=== PATIENT | male | born 1970 | race Caucasian/White ===

== ENCOUNTER 2025-05-22 01:56 | Inpatient (IN) | payer MEDICARE, OTHER, SELFPAY ==
[2025-05-21 19:56] VITALS: BP 120/93
[2025-05-21 20:27] LABS: Albumin 5.3 g/dl (3.5-5.0); Alkaline Phosphatase 71 U/L (38-126); Blood Urea Nitrogen 21 mg/dl (9-20); Calcium 10.8 mg/dl (8.4-10.2); Carbon Dioxide 20 mmol/L (22-30); Chloride 101 mmol/L (98-107); Glucose 174 mg/dl (70-99); Lipase 114 U/L (23-300); Potassium 3.5 mmol/L (3.5-5.1); Sodium 140 mmol/L (135-145); Total Protein 8.4 g/dl (6.3-8.2); eGFR > 60.00
[2025-05-21 20:37] LABS: AST (SGOT) 36 U/L (17-59)
[2025-05-21 20:41] LABS: Hematocrit 47.4 % (39.0-52.0); Hemoglobin 17.7 g/dL (13.0-18.0); Mean Corp Hgb Conc. 37.3 g/dL (33.0-37.0); Mean Corpuscular Volume 81.3 fL (80.0-94.0); Nucleated Red Blood Cells % 0 % (-); Platelet Count 348 10^3/uL (130-400); Red Cell Dist. Width 12.2 % (11.5-14.5)
[2025-05-21] MEDS: ATIVAN 0.5 MG IV (21:31)
[2025-05-21] MEDS: NSS 1000 IV (21:31)
[2025-05-21 21:37] LABS: ALT (SGPT) < 30 U/L (0-50)
--- NOTE | 2025-05-21 21:44 | ED.GENMED ---
History of Present Illness
General
Chief Complaint: Abdominal Symptoms
Source: patient and family (Mother at bedside)
Exam Limitations: none
Time Seen by Provider: 05/21/25 20:55
Nursing documentation reviewed up to this point in time: agreed with
History of Present Illness
History of Present Illness:
54 yo male w h/o Lyme's, on disability for anxiety, presents with upper abdominal pain and diarrhea that started early this morning around 6 AM. The only thing he ate that didn't taste right was a pastry early this a.m.Arrives via EMS, given Zofran
IV, feels did not significantly help. He notes ongoing nausea and mentions last emesis was several hours ago. He has had diarrhea since this a.m. and throughout the day.
The patient reports taking a significant amount of Gaviscon, described as finishing off a couple of partially filled bottles, though he is uncertain of the exact amount. He lives with his parents. ETOH only occasionally. He does not currently work
and denies any recent antibiotic use. The patient does not recall taking any regular medications for anxiety but mentioned he used to in the past. There is no history of past surgeries.
Past History
Past History
ED Past Medical History: HTN, Other (Sciatica) and Other (Lyme disease)
ED Past Surgical History: None
Social History
Tobacco: Vaping
Alcohol: None
Drug: None
Living: with family
Employment: Disabled
Review of Systems
Review of Systems
Allergies reviewed?: Yes
All Other Systems: ROS reviewed and negative except as documented in HPI and ROS
ABD/GI: Reports abdominal pain, nausea, vomiting and diarrhea
: Denies dysuria
Psychiatric: Reports anxiety
Phy Exam
Physical Exam
Physical Exam:
GENERAL: No acute distress. A&Ox3.
CONSTITUTIONAL: Afebrile.
EYES: clear, conjunctivae normal
ENMT: moist mucus membranes, Pharynx nl
RESPIRATORY: Regular respirations, nonlabored, lungs clear.
CARDIOVASCULAR: Regular rate and rhythm, no murmurs, no rubs.
GI: Soft, tender across upper abdomen , normal BS
MUSCULOSKELETAL: Moves with ease. Well perfused.
SKIN: Warm, dry, pink
PSYCH: Anxious mood and affect. Well kept, interactive and appropriate
NEUROLOGIC: Awake, alert and oriented. No focal neurological deficits
Sepsis
Sepsis Screening
Sepsis Assessment: Sepsis Ruled Out
Sepsis Screen
Sepsis Screen: Sepsis Ruled Out
Date: 05/22/25
Time: 00:57
Course
Orders/Labs/Results
Orders:
Orders
05/21/25 19:59
IV Insert/Care/Rem.- Treatment PRN
05/21/25 20:04
Complete Blood Count/With Diff Urgent
Comprehensive Metabolic Panel Urgent
Lipase Urgent
05/21/25 21:06
Lorazepam [Ativan] 0.5 mg IV NOW STA
05/21/25 21:07
0.9% Sodium Chloride 1000 ml [Nss] 1,000 ml IV BOLUS
05/21/25 22:06
CT Abd/Pel (IV only)-DH only Urgent
Comment:
Reason For Exam: pain across upper abdomen, n/v/d
05/21/25 23:16
Acetaminophen [Tylenol] 1,000 mg PO NOW STA
HYDROmorphone [Dilaudid] 1 mg IV NOW STA
05/21/25 23:23
Ketorolac [Toradol] 15 mg IV NOW STA
05/21/25 23:57
Ondansetron Injectable [Zofran] 4 mg IV NOW STA
05/22/25 00:16
HYDROmorphone [Dilaudid] 0.5 mg IV NOW STA
Abnormal Lab Results
05/21/25
20:04
WBC 24.8 H 10^3/uL
(4.8-10.8)
MCHC 37.3 H g/dL
(33.0-37.0)
Abs Immat Gran (auto) 0.1 H 10^3/uL
(0-0.05)
Absolute Neuts (auto) 22.9 H 10^3/uL
(1.4-6.5)
Absolute Lymphs (auto) 1.1 L 10^3/uL
(1.2-3.4)
Absolute Monos (auto) 0.8 H 10^3/uL
(0.1-0.6)
Neutrophils % 92.1 H %
(42.2-75.2)
Lymphocytes % 4.2 L %
(20.5-51.1)
Carbon Dioxide 20 L mmol/L
(22-30)
BUN 21 H mg/dl
(9-20)
Glucose 174 H mg/dl
(70-99)
Calcium 10.8 H mg/dl
(8.4-10.2)
Total Bilirubin 2.8 H mg/dl
(0.2-1.3)
Total Protein 8.4 H g/dl
(6.3-8.2)
Albumin 5.3 H g/dl
(3.5-5.0)
05/21/25 20:04
05/21/25 20:04
Vital Signs
Initial and Last Documented VS:
Initial Vital Signs
Temp Pulse Resp BP Pulse Ox
99.9 F 123 24 120/93 100
05/21/25 19:56 05/21/25 19:56 05/21/25 19:56 05/21/25 19:56 05/21/25 19:56
Last Documented Vital Signs
Temp Pulse Resp BP Pulse Ox
100.6 F H 123 24 140/96 100
05/22/25 00:17 05/21/25 19:56 05/21/25 19:56 05/22/25 00:00 05/22/25 00:45
MDM/Problems Addressed
Differential Diagnosis Includes:
The Differential Diagnosis includes, in no particular order and is not limited to:
1. Gastroenteritis
2. Food poisoning
3. Peptic ulcer disease
4. Gastritis
5. Functional dyspepsia
6. Gallbladder disease
7. Pancreatitis
8. Anxiety-induced hyperventilation
9. Irritable bowel syndrome
10. Viral gastroenteritis
MDM/Problems Addressed:
54 yo male w h/o Lyme's, on disability for anxiety, presents with upper abdominal pain and diarrhea that started early this morning around 6 AM. The only thing he ate that didn't taste right was a pastry early this a.m.Arrives via EMS, given Zofran
IV, feels did not significantly help. He notes ongoing nausea and mentions last emesis was several hours ago. He has had diarrhea since this a.m. and throughout the day.
The patient reports taking a significant amount of Gaviscon, described as finishing off a couple of partially filled bottles, though he is uncertain of the exact amount. He lives with his parents. ETOH only occasionally. He does not currently work
and denies any recent antibiotic use. The patient does not recall taking any regular medications for anxiety but mentioned he used to in the past. There is no history of past surgeries.
Afebrile, extremely anxious, hyperpneic
Plan:
- Administer intravenous fluids.
- Collect a stool sample if the patient experiences another episode of diarrhea.
- Consider providing calming medication.
-Antiemetic medication
CBC: WBC 24.8 otherwise unremarkable
CMP:
10:00 PM:
In to reevaluate patient. Slightly less anxious, abdomen firm, tender mid upper abdomen only the rest of the abdomen is nontender.
Will obtain CT
11:15 p.m.
Pt writhing in pain
Temp 100.5
[address] report reviewed: IMPRESSION:
Image quality is mildly degraded by motion artifact.
There are numerous mildly prominent loops of small bowel with areas of wall thickening and stranding as well as air-fluid levels in the colon which is suggestive of coloenteritis/diarrheal illness. There is small volume free fluid in the upper
pelvis which may be reactive. No free air.
12:00 a.m.
Pt still vomiting, abdominal pain,
Plan: Admit: gastroenteritis/colitis,
Hospitalist notified of admission.
*Pulse Oximetry
SaO2: 100
Oxygen Mode of Delivery: Room air
Patient hypoxic: no
*Critical Care Note
Total Time (30-74mins, 75-104mins- exclusive of procedures): Not Applicable
ED Attending Note
-
Portions of this chart may have been created with voice recognition software.� Occasional wrong word or��sound alike� substitutions may have occurred due to the inherent limitations of voice recognition software.
Discharge Plan
Departure
Patient Disposition: Admit
Date of Disposition: 05/22/25
Time of Disposition: 00:19
Admit to: Med/Surg
Presentation/result/management discussed w/ accepting MD/DO: Hospitalist
Patient with high blood pressure during this ER visit?: No
Condition: Fair
Discharge Problem:
Gastroenteritis, Abdominal pain
Prescriptions:
New
ondansetron 4 mg tablet,disintegrating
4 mg PO Q8H PRN (Reason: nausea and vomiting) 4 Days Qty: 12 0RF
Referrals:
NONE,* [Family Provider, Internal Medicine]
Interventions
Interventions:
*Risk Screen - Suicide Last Done: 05/21/25 19:56
*General Assessment Last Done: 05/21/25 21:55
*Neglect/Abuse Screening Last Done: 05/21/25 19:56
*ED- Fall Risk Assessment Last Done: 05/21/25 21:55
*ED COVID-19 Vaccine History Last Done: 05/21/25 21:55
QY-Etynez-Scyfkezpti Assessment Last Done: 05/21/25 21:55
Discharge Date and Time
Print Language: LITHUANIAN
[2025-05-21] MEDS: TYLENOL 1000 MG PO (23:43)
[2025-05-21] MEDS: TORADOL 15 MG IV (23:44)
[2025-05-21 23:54] VITALS: BP 158/112
[2025-05-22] VITALS (8 sets, daily range): BP systolic 136–172; BP diastolic 83–103; BMI 28.0
[2025-05-22] MEDS: ZOFRAN 4 MG IV ×3 (00:10→12:57)
[2025-05-22] MEDS: DILAUDID 0.5 MG IV (00:22)
--- NOTE | 2025-05-22 01:24 | HPS.HSE ---
Family Physician
-
Family Physician: * NONE
Chief Complaint
-
N/V/D
History of Present Illness
Patient is a 54y M with PMH significant for debilitating anxiety who presents to ED complaining of N/V/D. Patient states that his symptoms started this AM and have been persistent throughout the day. He notes that he attended a birthday alliance party
yesterday, but he is not aware of other attendees having similar symptoms. he complains of intermittent crampy abdominal pain, N/V and watery / non-bloody diarrhea. Patient took Gaviscon at home (apparently a large quantity - unclear how much
precisely) without relief of his symptoms. He presented to the ED for further evaluation and treatment.
At the time of my examination, patient is in moderate distress due to abdominal discomfort, nausea and anxiety.
Medical History
Past Medical History
Past Medical History: Reports Other
Additional Past Medical History:
Anxiety
Past Surgical History: Reports None
Social History
Tobacco: Non-smoker
Alcohol: None
Drug: None
Living: With Family (On disability due to anxiety. Lives with his parents.)
Family History
Family History: Not pertinent
Allergies / Home Medications
Allergies reflects when Allergies were last updated in [facility].
Home Medications with original date entered in [facility]
Allergy/Medication List:
Allergies
Allergy/AdvReac Type Severity Reaction Status Date / Time
No Known Allergies Allergy Unverified 05/21/25 19:56
Home Medications
ondansetron 4 mg disintegrating tablet 4 mg PO Q8H PRN nausea and vomiting 4 days #12 tabs 05/22/25
Review of Systems
-
History Source: Patient
A 12 point ROS was completed and negative except as noted: Yes
Constitutional: Reports Fatigue; Denies Fever or Chills
EENT: Denies Sore Throat
Respiratory: Denies Cough or Trouble Breathing
Cardiac: Denies Chest Pain or Palpitations
Abdomen/GI: Reports Abdominal Pain, Nausea, Vomiting and Diarrhea; Denies Bloody Stools or Black Stools
: Denies Dysuria or Frequency
Musculoskeletal: Denies Joint Pain or Edema
Neurological: Denies Dizzy or Headache
Psych: Reports Anxiety; Denies Depression
Physical Exam
Vital Signs
Vital Signs
Temp Pulse Resp BP Pulse Ox
100.6 F H 123 24 140/96 100
05/22/25 00:17 05/21/25 19:56 05/21/25 19:56 05/22/25 00:00 05/22/25 00:45
Physical Exam
General: Other (54y M in moderate distress due to pain / nausea.)
HEENT: Other (Dry MM. Neck supple.)
Respiratory: Clear; No Wheezes, Rales or Rhonchi
Cardiac: S1/S2 and Tachycardia; No Murmur
GI: Soft, Non Distended, Normal Bowel Sounds and Other (Mildly, diffusely tender.)
Musculoskeletal: No Clubbing, No Cyanosis and No Edema
Neuro: AO x 3
Psych: Other (Anxious, atypical / childlike affect.)
Laboratory Results
-
05/21/25 20:04
05/21/25 20:04
Laboratory Results
Total Bilirubin 2.8 mg/dl (0.2-1.3) H 05/21/25 20:04
AST 36 U/L (17-59) 05/21/25 20:04
ALT < 30 U/L (0-50) 05/21/25 20:04
Alkaline Phosphatase 71 U/L (38-126) 05/21/25 20:04
Lipase 114 U/L (23-300) 05/21/25 20:04
Impression/Plan
-
A/P: Patient is a 54y M with PMH significant for anxiety who presents to ED complaining of N/V/D.
Coloenteritis
Sepsis secondary to the above
Anion Gap Metabolic Acidosis
- Admit for further evaluation and treatment.
- Patient presents with fever, tachycardia, tachypnea, leukocytosis and symptoms / CT findings suggestive of enteritis.
- Check stool studies when able. Consider antibiotics if positive cultures.
- Aggressive IVF replacement.
- Supportive care with antiemetics, etc.
- Follow fever curve. Follow for changes in symptoms.
- Check lactate now and follow if elevated.
- Follow for clinical improvement and improvement in labs / lytes.
Generalized Anxiety
- Patient on disability due to anxiety diagnosis.
- Not currently on any maintenance medications?
- PRN Ativan for now.
DVT Prophylaxis: SCDs
Code Status: Full
[2025-05-22] MEDS: LR 1000 IV ×4 (02:43→23:09)
[2025-05-22] MEDS: ATIVAN 0.5 MG PO ×2 (02:58→08:04)
[2025-05-22 03:02] LABS: Hematocrit 42.3 % (39.0-52.0); Hemoglobin 16.1 g/dL (13.0-18.0); Mean Corp Hgb Conc. 38.1 g/dL (33.0-37.0); Mean Corpuscular Volume 80.7 fL (80.0-94.0); Platelet Count 284 10^3/uL (130-400); Red Cell Dist. Width 12.4 % (11.5-14.5)
[2025-05-22 03:23] LABS: ALT (SGPT) 16 U/L (0-50); AST (SGOT) 27 U/L (17-59); Albumin 4.6 g/dl (3.5-5.0); Alkaline Phosphatase 66 U/L (38-126); Blood Urea Nitrogen 21 mg/dl (9-20); Calcium 9.6 mg/dl (8.4-10.2); Carbon Dioxide 19 mmol/L (22-30); Chloride 109 mmol/L (98-107); Estimated Creatinine Clearance 53 ml/min; Glucose 157 mg/dl (70-99); Magnesium 2.3 mg/dl (1.6-2.3); Potassium 3.6 mmol/L (3.5-5.1); Sodium 140 mmol/L (135-145); Total Protein 7.4 g/dl (6.3-8.2); eGFR > 60.00
[2025-05-22] MEDS: COMPAZINE 5 MG IV (04:06)
[2025-05-22] MEDS: TYLENOL 650 MG PO (05:23)
[2025-05-22] MEDS: PROTONIX 40 MG PO (07:29)
--- NOTE | 2025-05-22 09:54 | W.PN.HOSP.TC ---
Addendum entered and electronically signed by Juanito Olivier MD 05/22/25 12:41:
I was able to talk to his mother and her phone number is actually [phone]. I explained current plan of care. Also confirm the patient is not taking any medications at home so no need for Ativan as it was ordered upon admission.
Original Note:
Today's Communication/Plan
-
GI eval
Assessment / Plan
Assessment / Plan
Physical exam:
General: Acutely ill
HEENT: Normocephalic, Atraumatic and Moist Mucous Membranes
Respiratory: Clear to Auscultation; Negative Wheezes, Rales or Rhonchi
Cardiac: Regular Rhythm and S1/S2
GI: Soft, tender and Nondistended
Musculoskeletal: No Clubbing, No Cyanosis and No Edema
Neuro: Awake, Alert and Oriented
Psych: Calm
A/P:
Coloenteritis
Sepsis secondary to the above
Anion Gap Metabolic Acidosis
- Admit for further evaluation and treatment.
- Patient presents with fever, tachycardia, tachypnea, leukocytosis and symptoms / CT findings suggestive of enteritis.
- Check stool studies when able. Consider antibiotics if positive cultures.
- Aggressive IVF replacement.
- Supportive care with antiemetics, etc.
- Follow fever curve. Follow for changes in symptoms.
- Check lactate now and follow if elevated.
- Follow for clinical improvement and improvement in labs / lytes.
- GI consult today
Generalized Anxiety
- Patient on disability due to anxiety diagnosis.
- Not currently on any maintenance medications?
- Discontinue as needed Ativan for now since there is no clear evidence that he has been on it prior to admission. I will try to reach out to family but unsuccessful and will try later down the road to clarify.
DVT Prophylaxis: SCDs
Code Status: Full
Anticipated Discharge: 24 - 48 hours
Subjective/Interval History
-
Date of Service: May 22, 2025
Patient does complain of abdominal pain with nausea. Does not make much of eye contact and does take significant amount of time to answer questions.
Objective Data
-
Labs:
Laboratory Results
05/22/25
02:50
WBC 22.4 H
Hgb 16.1
Hct 42.3
Plt Count 284
Sodium 140
Potassium 3.6
Chloride 109 H
Carbon Dioxide 19 L
BUN 21 H
Creatinine 1.2
Glucose 157 H
Calcium 9.6
Total Bilirubin 2.4 H
AST 27
ALT 16
Alkaline Phosphatase 66
Vital Signs:
Vital Signs
Temp Pulse Resp BP Pulse Ox
99.5 F 104 18 152/92 95
05/22/25 08:14 05/22/25 08:14 05/22/25 08:14 05/22/25 08:14 05/22/25 08:14
I&O
05/21/25 05/22/25 05/23/25
06:59 06:59 06:59
Intake Total 800 / 800
Balance 800 / 800
--- NOTE | 2025-05-22 10:34 | CON.GI ---
Addendum entered and electronically signed by Shubham Garcia MD 05/22/25 12:12:
I saw and examined the patient.
The LUNCHROOM MONITOR or PA's note was reviewed and I agree with the note.
Comment: 54yo male presents with n/v, diarrhea, abdominal pain after eating out with her mother. Denies rectal bleeding. WBC elevated on admission 24.8. CT shows numerous mildly prominent loops SB with wall thickening and stranding and AFL in
colon c/w coloenteritis/diarrheal illness. No prior colonoscopy. History somewhat limited by debilitating anxiety
REC:
Supportive care, bowel rest, IVF
Probably infectious enterocolitis
Check stool c diff, norovirus
Hold on abx
Advance diet as tolerated
Discuss colonoscopy as outpt after resolution
Original Note:
Consultation
-
Date/Time Consultation Requested: 05/22/25 1000
Date/Time Consultation Performed: 05/22/25 1030
Requesting Provider: Juanito Olivier MD
Performing Provider: SUZANNE Dugan, Shubham garcia MD
Reason for Consultation: abdominal pain, with nausea and vomiting
Medical History
Chief Complaint / HPI
Chief Complaint: nausea, vomiting, abdominal pain and diarrhea
History of Present Illness:
Pt is a 54yo with hx anxiety, HTN, prior lyme disease and sciatica with onset of abdominal pain with nausea and vomiting. Pt admits to eating out for mother birthday prior to onset but unable to recall what foods he consumed. Per ER pt reported
taking increased gaviscon prior to admission. On admission noted with WBC 24,800, lactate 2.2, bili 2.4 with normal D bili 0.1 with otherwise normal LFT's and lipase. Ct completed on admission with IV contrast only with prominent loops of small
bowel with thickening and stranding with air fluid levels in colon suggest coloenteritis/diarrhea illness and small volume free fluid in upper pelvis and small HH.
In review with patient some limited history with anxiety in speaking. At onset of symptoms noted with non bloody emesis and non bloody stools. He currently complaints of continued abdominal pain, and nausea since admission. He denies issue
with dysphagia, GERD, chronic diarrhea, constipation or bleeding. No Hx EGD or colonoscopy in past.
Past Medical History
Past Medical History: HTN, Psychiatric (anxiety ) and Other (sciatica, lyme disease )
Social History
Tobacco: Vaping
Alcohol: Occasional (rare)
Drug: None
Living: With Family
Employment: Disabled (with hx severe anxiety )
Family History
Family History: Other (denies family hx GI issues )
Allergies / Home Medications
Allergy/AdvReac Type Severity Reaction Status Date / Time
No Known Allergies Allergy Unverified 05/21/25 19:56
�Medication �Instructions �Recorded
ondansetron 4 mg disintegrating 4 mg PO Q8H PRN nausea and 05/22/25
tablet vomiting 4 days #12 tabs
Review of Systems
-
Unable to obtain full review of systems at this time due to: Other (some limitation with anxiety and recall of events prior to admission)
History Source: Patient
Constitutional: Reports Weight Loss (few lbs with illness )
EENT: Reports No Symptoms
Respiratory: Reports No Symptoms
Cardiac: Reports No Symptoms
Abdomen/GI: Reports Abdominal Pain, Nausea, Vomiting and Diarrhea
: Reports No Symptoms
Musculoskeletal: Reports No Symptoms
Skin: Reports No Symptoms
Neurological: Reports Weakness
Endocrine: Reports No Symptoms
Hematologic/Lymphatic: Reports No Symptoms
Vital Signs
Temp Pulse Resp BP Pulse Ox
99.5 F 104 18 152/92 95
05/22/25 08:14 05/22/25 08:14 05/22/25 08:14 05/22/25 08:14 05/22/25 08:14
Physical Exam
Exam
General: Well Developed, Well Nourished and Other (lying in bed without eye contact and some difficulty with recall of events prior to admission)
HEENT: Normocephalic and Anicteric
Respiratory: Clear
Cardiac: Other (tachy)
GI: Soft, Non Distended and Tender (diffuse )
Musculoskeletal: No Clubbing and No Cyanosis
Skin: Warm and Dry
Neuro: Awake and Alert
Psych: Calm
Results
WBC 22.4 10^3/uL (4.8-10.8) H 05/22/25 02:50
Hgb 16.1 g/dL (13.0-18.0) 05/22/25 02:50
Hct 42.3 % (39.0-52.0) 05/22/25 02:50
MCV 80.7 fL (80.0-94.0) 05/22/25 02:50
Plt Count 284 10^3/uL (130-400) 05/22/25 02:50
Absolute Neuts (auto) 22.9 10^3/uL (1.4-6.5) H 05/21/25 20:04
Sodium 140 mmol/L (135-145) 05/22/25 02:50
Potassium 3.6 mmol/L (3.5-5.1) 05/22/25 02:50
Chloride 109 mmol/L (98-107) H 05/22/25 02:50
Carbon Dioxide 19 mmol/L (22-30) L 05/22/25 02:50
BUN 21 mg/dl (9-20) H 05/22/25 02:50
Creatinine 1.2 mg/dL (0.7-1.3) 05/22/25 02:50
Calcium 9.6 mg/dl (8.4-10.2) 05/22/25 02:50
Total Bilirubin 2.4 mg/dl (0.2-1.3) H 05/22/25 02:50
AST 27 U/L (17-59) 05/22/25 02:50
ALT 16 U/L (0-50) 05/22/25 02:50
Alkaline Phosphatase 66 U/L (38-126) 05/22/25 02:50
Lipase 114 U/L (23-300) 05/21/25 20:04
Diagnostic Image Results:
Image quality is mildly degraded by motion artifact.
There are numerous mildly prominent loops of small bowel with areas of wall thickening and stranding as well as air-fluid levels in the colon which is suggestive of coloenteritis/diarrheal illness. There is small volume free fluid in the upper
pelvis which may be reactive.
Small hiatal hernia.
Prior GI Procedures:
EGD: denies hx in past
Colonoscopy: denies hx in past
Assessment / Plan
-
Pt is a 54yo with hx anxiety, HTN, prior lyme disease and sciatica with onset of abdominal pain with nausea and vomiting. Pt admits to eating out for mother birthday prior to onset but unable to recall what foods he consumed. Per ER pt reported
taking increased gaviscon prior to admission. On admission noted with WBC 24,800, lactate 2.2, bili 2.4 with normal D bili 0.1 with otherwise normal LFT's and lipase. Ct completed on admission with IV contrast only with prominent loops of small
bowel with thickening and stranding with air fluid levels in colon suggest coloenteritis/diarrhea illness and small volume free fluid in upper pelvis and small HH. No Hx EGD or colonoscopy in past.
-abdominal pain with nausea/vomiting and diarrhea
-Ct with coloenteritis/diarrhea illness
-leukocytosis
-elevated lactate on admission
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
other med problems:
-anxiety with hx disability
-hx HTN per chart no current medications
-hx lyme disease
-prior sciatica
PLAN:
etiology of symptoms with concern for underlying infectious etiology with leukocytosis and coloenteritis on CT vs anxiety related vs other
agree with stool culture-- will add further stool studies and norovirus
trial of clear diet
cont supportive care with IVF, antiemetics, pain control, PPI
trend cbc with elevated WBC's on admission
support given with hx chronic anxiety
no hx colonoscopy -- consider OP when improved from current illness
-
-
Thank you for consultation and allowing me to participate in the patient's care. Please call the production support supervisor GI physician during the after hours with any questions or concerns.
--- NOTE | 2025-05-22 12:16 | CM ---
Addendum entered by Ksenia Arriola 05/22/25 12:34:
CM spoke with patients mother, confirmed patient does not have a current PCP.
Original Note:
CM reviewed chart, patient seen bedside, initial assessment completed. Patient resides with his mother and step father in a multiple story home, bedroom on second floor, few steps to enter. Patient reports he has a cane and walker at home, denies
VN/SNF history. Patient reports PCP Dr. Del Castillo, pharmacy [facility]. Patient unsure if he has prescription coverage, denies needs at this time. Consult received for advance directive, patient declining at this time. CM will continue to follow
for all discharge planning needs.
Plan; home no needs likely.
[2025-05-23 03:00] VITALS: BP 159/91
[2025-05-23 05:40] VITALS: BMI 28.5
[2025-05-23 07:00] VITALS: BP 139/92
[2025-05-23 07:10] LABS: Hematocrit 36.3 % (39.0-52.0); Hemoglobin 12.9 g/dL (13.0-18.0); Mean Corp Hgb Conc. 35.5 g/dL (33.0-37.0); Mean Corpuscular Volume 86.0 fL (80.0-94.0); Nucleated Red Blood Cells % 0 % (-); Platelet Count 200 10^3/uL (130-400); Red Cell Dist. Width 12.8 % (11.5-14.5)
[2025-05-23] MEDS: LR 1000 IV (07:14)
[2025-05-23] MEDS: PROTONIX 40 MG PO (07:15)
[2025-05-23 07:16] LABS: ALT (SGPT) 14 U/L (0-50); AST (SGOT) 31 U/L (17-59); Albumin 3.6 g/dl (3.5-5.0); Alkaline Phosphatase 47 U/L (38-126); Blood Urea Nitrogen 11 mg/dl (9-20); Calcium 9.1 mg/dl (8.4-10.2); Carbon Dioxide 27 mmol/L (22-30); Chloride 109 mmol/L (98-107); Estimated Creatinine Clearance 80 ml/min; Glucose 127 mg/dl (70-99); Potassium 3.9 mmol/L (3.5-5.1); Sodium 138 mmol/L (135-145); Total Protein 5.9 g/dl (6.3-8.2); eGFR > 60.00
--- NOTE | 2025-05-23 08:16 | W.PN.HOSP.TC ---
Today's Communication/Plan
-
Discharge planning today
Assessment / Plan
Assessment / Plan
Physical exam:
General: No acute distress
HEENT: Normocephalic, Atraumatic and Moist Mucous Membranes
Respiratory: Clear to Auscultation; Negative Wheezes, Rales or Rhonchi
Cardiac: Regular Rhythm and S1/S2
GI: Soft, tender and Nondistended
Musculoskeletal: No Clubbing, No Cyanosis and No Edema
Neuro: Awake, Alert and Oriented, no neurological deficits
Psych: Calm
A/P:
Coloenteritis
Sepsis secondary to the above
Anion Gap Metabolic Acidosis
-Improving
-GI consult appreciated
- WBC 24.8--> 14.1 today
- Advance diet and if tolerates he can go home.
Hyperbilirubinemia
From 2.8--. Down to normal 1.3
Generalized Anxiety
- Patient on disability due to anxiety diagnosis.
- Discontinue as needed Ativan. Discussed with mother and he is not on any medications at home
DVT Prophylaxis: SCDs
Code Status: Full
Anticipated Discharge: Today
Subjective/Interval History
-
Date of Service: May 23, 2025
Patient feels better today. His speech today is different than yesterday. He is alert oriented, he is talking normal speed and even making jokes in conversation. Friend at bedside today. He wants to go home
Objective Data
-
Labs:
Laboratory Results
05/23/25
06:37
WBC 14.1 H
Hgb 12.9 L
Hct 36.3 L
Plt Count 200 D
Sodium 138
Potassium 3.9
Chloride 109 H
Carbon Dioxide 27
BUN 11
Creatinine 0.8
Glucose 127 H
Calcium 9.1
Total Bilirubin 1.3 D
AST 31
ALT 14
Alkaline Phosphatase 47
Vital Signs:
Vital Signs
Temp Pulse Resp BP Pulse Ox
99.0 F 81 16 139/92 98
05/23/25 07:00 05/23/25 07:00 05/23/25 07:00 05/23/25 07:00 05/23/25 07:00
I&O
05/22/25 05/23/25 05/24/25
06:59 06:59 06:59
Intake Total 800 / 800
Balance 800 / 800
--- NOTE | 2025-05-23 10:12 | W.PN.GI.CBS2 ---
Addendum entered and electronically signed by Shubham Amato MD 05/23/25 13:31:
I saw and examined the patient.
The BACTERIOLOGIST MEDICAL or PA's note was reviewed and I agree with the note.
Comment: Feeling much better. No diarrhea or pain. Appears much less anxious
ABD soft NTND
REC:
WBC decreased
Tolerating POs
Likely infectious enterocolitis
For d/c today
Told pt to call GI office if recurrent GI symptoms
Will sign off
Original Note:
Today's Communication / Plan
-
etiology of symptoms with concern for underlying infectious etiology- gastroenteritis with leukocytosis and coloenteritis on CT vs less likely anxiety related vs other
stool cx neg so far = further studies not sent
tolerating clears and pt asking for discharge
will advance to low residue diet if tolerating consider discharge
discussed with patient if recurrent symptoms after discharge to return
cap IVF if tolerating diet
WBC improved
support given with hx chronic anxiety
no hx colonoscopy -- consider OP when improved from current illness --GI contract left on discharge
Assessment / Plan
-
Pt is a 54yo with hx anxiety, HTN, prior lyme disease and sciatica with onset of abdominal pain with nausea and vomiting. Pt admits to eating out for mother birthday prior to onset after eating cheesesteak eggrolls. Per ER pt reported taking
increased gaviscon prior to admission. On admission noted with WBC 24,800, lactate 2.2, bili 2.4 with normal D bili 0.1 with otherwise normal LFT's and lipase. Ct completed on admission with IV contrast only with prominent loops of small bowel
with thickening and stranding with air fluid levels in colon suggest coloenteritis/diarrhea illness and small volume free fluid in upper pelvis and small HH. No Hx EGD or colonoscopy in past.
-abdominal pain with nausea/vomiting and diarrhea
-Ct with coloenteritis/diarrhea illness
-leukocytosis
-elevated lactate on admission
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
other med problems:
-anxiety with hx disability
-hx HTN per chart no current medications
-hx lyme disease
-prior sciatica
PLAN:
etiology of symptoms with concern for underlying infectious etiology- gastroenteritis with leukocytosis and coloenteritis on CT vs less likely anxiety related vs other
stool cx neg so far = further studies not sent
tolerating clears and pt asking for discharge
will advance to low residue diet if tolerating consider discharge
discussed with patient if recurrent symptoms after discharge to return
cap IVF if tolerating diet
WBC improved
support given with hx chronic anxiety
no hx colonoscopy -- consider OP when improved from current illness --GI contract left on discharge
Subjective
Subjective
Date of Service: May 23, 2025
05/22 brown stool tolerating liquids-- feeling much better-- pt asking about discharge
Objective
Data Reviewed
Laboratory Data:
Laboratory Results
05/23/25 06:37
05/23/25 06:37
Laboratory Results
Magnesium 2.3 mg/dl (1.6-2.3) 05/22/25 02:50
Total Bilirubin 1.3 mg/dl (0.2-1.3) D 05/23/25 06:37
AST 31 U/L (17-59) 05/23/25 06:37
ALT 14 U/L (0-50) 05/23/25 06:37
Alkaline Phosphatase 47 U/L (38-126) 05/23/25 06:37
Lipase 114 U/L (23-300) 05/21/25 20:04
Vital Signs and I&O:
Vital Signs
Temp Pulse Resp BP Pulse Ox
99.0 F 81 16 139/92 98
05/23/25 07:00 05/23/25 07:00 05/23/25 07:00 05/23/25 07:00 05/23/25 07:00
I&O
05/22/25 05/23/25 05/24/25
06:59 06:59 06:59
Intake Total 800 / 800
Balance 800 / 800
Physical Exam
Physical Exam
HEENT: Anicteric and Moist mucous membranes
Cardiology: Normal Sinus Rhythm
Pulmonary: Clear
GI: Soft, Non Distended and Tender (minimal )
Extremities: No Edema
Neuro: Non Focal
[2025-05-23 11:00] VITALS: BP 141/78
--- NOTE | 2025-05-23 11:37 | W.DCSUMMARY ---
Discharge Summary
Discharge Data
Date of Admission: 05/22/25
Date of Discharge: 05/23/25
-
Pending Results: No
Hospital Course
Patient 54-year-old male with history of anxiety came into the hospital with abdominal pain nausea vomiting and diarrhea. GI consulted. He was given IV fluids and supportive care. Most of his stool studies unremarkable and some are pending. His
WBC trended down from 25,000 down to 14,000. He feels back to his baseline. GI cleared him for discharge today. He will be discharged in stable condition today.
Discharge Plan
-
Patient Disposition: Home (Routine Discharge)
Discharge Diagnosis/Procedures: Sepsis. Acute gastroenterocolitis. Acute kidney injury. Hyperbilirubinemia.
Diet: Low Residue
Activity: As tolerated
Blood Work: Please PCP to order CBC, BMP within 1 week
Referrals:
Primary care provider [Other] - in less than 1 week
Shubham Amato MD [Active, Gastroenterology]
Referral Note: call to arrange 2 month follow up when improved from current illness. Consider eventual colonoscopy for screening for colon cancer.
NONE,* [Family Provider, Internal Medicine]
Prescriptions:
New
ondansetron 4 mg tablet,disintegrating
4 mg PO Q8H PRN (Reason: nausea and vomiting) 4 Days Qty: 12 0RF
Discharge Orders:
Discharge Patient (As Directed); Ordered 05/23/25
Ordered By: Juanito Olivier
Discharge Date and Time
Print Language: DANISH
--- NOTE | 2025-05-23 12:03 | CM ---
CM reviewed chart, patient seen bedside with family, discussed plan for discharge today. IMM verbally reviewed, provided with copy, placed in chart. Patient confirms transportation home. CM will continue to follow for all discharge planning needs.
Plan; home no needs.
[2025-05-23 14:45] VITALS: BP 145/72
== END 2025-05-23 15:01 | disposition home or self-care (01) | DRG 872 ==
LOC: 4 WEST ACU 01:56
PROVIDERS: Emergency Medicine; ADMITTING PHYSICIAN Hospitalist; ATTENDING PHYSICIAN Hospitalist; CONSULT PHYSICIAN Specialist; EMERGENCY PHYSICIAN Emergency Medicine
DX: A41.9 Sepsis, unspecified organism (principal); A09 Infectious gastroenteritis and colitis, unspecified; E87.20 Acidosis, unspecified; R17 Unspecified jaundice; N17.9 Acute kidney failure, unspecified; I10 Essential (primary) hypertension; F41.1 Generalized anxiety disorder; K44.9 Diaphragmatic hernia without obstruction or gangrene; D72.819 Decreased white blood cell count, unspecified; Z86.19 Personal history of other infectious and parasitic diseases
CPT/HCPCS: 74177; 80053; 82248; 83605; 83690; 83735; 85025; 85027; 87045; 87046; 87427; 96361; 96374; 96375; 96376; 99284; Q9967